=== PATIENT | male | born 1985 | race Caucasian/White ===

== ENCOUNTER → 2020-04-17 | Outpatient (CLI) | payer OTHER ==
--- NOTE | 2020-04-17 13:09 | CONS ---
CONSULTATION DATE OF SERVICE: 04/17/2020 This 34-year-old gentleman has been evaluated in the sleep center for possible obstructive sleep apnea-hypopnea syndrome. HISTORY OF PRESENT ILLNESS/SLEEP-WAKE EVALUATION: Patient usual sleep schedule from 9 p.m. to 6 a.m. on weekdays and from midnight until 7 a.m. on weekends. Sometimes he has problems with falling asleep, although no TV in bedroom. He sleeps on the back and side position with snoring and witnessed episodes of stopped breathing during sleep by his father. The patient wakes up from sleep 2 times with nocturia and dry mouth. In the morning, patient wakes up tired, has episodes of depression and anxiety. [place] Sleepiness Scale is 3. PAST MEDICAL HISTORY: Positive for anxiety, depression, hepatitis C, opioid usage, history of nasal fracture. PAST SURGICAL HISTORY: None. MEDICATIONS: Suboxone 18 mg twice a day, Celexa 30 mg once a day, Remeron 30 mg once a day, once a day. SOCIAL HISTORY: Positive for smoking 1 pack a day. Alcohol consumption none. FAMILY HISTORY: Heart problems, hypertension, hyperlipidemia, arthritis, cancer, diabetes, acid reflux, sleep apnea. PHYSICAL EXAMINATION: GENERAL: gentleman without distress. VITAL SIGNS: BP 125/84, HR 86, RR 15, height 6 feet 3 inches, weight 279.4 pounds, body mass index 34.8, temperature 97.6, oxygen saturation room air 95%. HEENT: PERRLA, EOMI. Oropharynx extremely low position of soft palate, Mallampati 4. Wide neck is 17 inches in circumference. NECK: Supple, no JVD. Thyroid is not palpable. LUNGS: Clear to percussion and to auscultation. Good air exchange. No wheezing or rhonchi. HEART: S1, S2 regular. No murmurs, gallops, or rubs. ABDOMEN: Soft and nontender. Bowel sounds are present. No organomegaly appreciated. EXTREMITIES: No clubbing or cyanosis. GAS WELDER APPRENTICE: Awake, alert, and oriented X3. Cranial nerves 2 to 7 intact. There is no fasciculation or atrophy. noted. No focal deficits observed. IMPRESSION: 1. Snoring, witnessed episodes of stopped breathing during the sleep, extremely low position of soft palate, Mallampati 4, wide neck 17 inches in circumference, tiredness after awakenings in the morning, obstructive sleep apnea-hypopnea syndrome. 2. History of opioid usage on treatment of Suboxone, increased risk for central apneas. 3. History of depression. 4. History of anxiety. 5. Status post nasal fracture. Some restriction of nasal breathing, possible nasal septum deviation. 6. History of hepatitis C. PLAN: 1. Polysomnography for evaluation of patient's breathing during sleep. 2. CPAP/BiPAP titration if sleep study confirms obstructive sleep apnea-hypopnea syndrome. 3. Preferable position during sleep on the side. 4. No driving if patient feels any sleepiness. 5. I will see patient for follow up visit to explain results of testing and following plan. Thank you very much for referring this patient for consultation. Sincerely, Finn Batres MD, PhD, FAASM Diplomat of [employer] [place] [place] As[employer]er [facility] [place] MMODL / IJN: [id number] /
== END | disposition home or self-care (01) ==
LOC: SLEEP 11:10
PROVIDERS: ATTEND Internal Medicine
DX: G47.33 Obstructive sleep apnea (adult) (pediatric) (principal); Z86.59 Personal history of other mental and behavioral disorders; Z87.81 Personal history of (healed) traumatic fracture; Z86.19 Personal history of other infectious and parasitic diseases
CPT/HCPCS: 99211

== ENCOUNTER → 2021-06-16 | Outpatient (CLI) | payer BC, OTHER ==
[2021-06-17 00:19] LABS: Basophils # (A) 0.02 X 10*3/uL (0.00-0.10); Basophils % (A) 0.3 %; Eosinophils % (A) 1.6 %; HCT 46.2 % (39.6-50.0); HGB 15.1 g/dL (13.0-17.0); Immature Grans, Automated 0.3 %; Lymphocytes # (A) 3.06 X 10*3/uL (0.90-5.00); Lymphocytes % (A) 47.5 %; MCH 31.3 pg (27.0-32.0); MCHC 32.7 g/dL (32.0-37.0); MCV 95.7 fL (80.0-97.0); Mean Platelet Volume 9.4 fL (9.5-12.2); Monocytes # (A) 0.36 X 10*3/uL (0.20-1.00); Monocytes % (A) 5.6 %; NRBC Per 100 WBC 0 /100 WBCS (0.0-0.0); Neutrophils # (A) 2.88 X 10*3/uL (1.80-7.70); Neutrophils % (A) 44.7 %; Platelet Count 193 X 10*3/uL (140-440); RBC 4.83 X 10*6/uL (4.40-5.60); RDW 12.5 % (11.5-14.5); WBC 6.44 X 10*3/uL (4.50-10.00)
[2021-06-17 02:09] LABS: Erythrocyte Sedimentation Rate 10 mm/Hr (0-15)
[2021-06-17 02:44] LABS: ALT 56 U/L (10-49); AST 47 U/L (14-35); BUN/Creat Ratio 17.29 Ratio (12.00-20.00); Blood Urea Nitrogen 14.7 mg/dL (9.0-27.0); Calcium 9.7 mg/dL (8.7-10.3); Carbon Dioxide 23.7 mmol/L (20.0-27.5); Chloride 101 mmol/L (96-109); Creatine Kinase 405 U/L (35-257); Glucose 92 mg/dL (70-110); Non-African American GFR(CKD) 111.3 (60.0-200.0); Potassium 4.1 mmol/L (3.5-5.5); Sodium 139 mmol/L (135-145)
[2021-06-17 06:27] LABS: C Reactive Protein <0.30 mg/dL (0.00-0.80); Rheumatoid Factor, Qnt <10 IU/mL (0-15)
[2021-06-17 09:25] LABS: Angiotensin-1 Converting Enz. 95 U/L (8-52)
[2021-06-17 10:56] LABS: HLA B27 NEGATIVE
[2021-06-17 12:51] LABS: Cyclic Citrull Pep IgG Unit <0.5 U/mL; Cyclic Citrullinated Pep IgG NEGATIVE (NEGATIVE)
== END | disposition home or self-care (01) ==
LOC: LABWHC1 10:17
PROVIDERS: ATTEND Orthopaedic Surgery
DX: M79.642 Pain in left hand (principal); M79.645 Pain in left finger(s)
CPT/HCPCS: 36415; 80048; 82164; 82306; 82550; 83520; 84439; 84443; 84450; 84460; 84550; 85025; 85652; 86038; 86140; 86200; 86431; 86812

== ENCOUNTER → 2022-07-10 | Outpatient (CLI) | payer BC ==
[2022-07-10 23:47] LABS: HCT 43.5 % (39.6-50.0); HGB 14.7 g/dL (13.0-17.0); MCH 32.9 pg (27.0-32.0); MCHC 33.8 g/dL (32.0-37.0); MCV 97.3 fL (80.0-97.0); Mean Platelet Volume 8.5 fL (9.5-12.2); NRBC Per 100 WBC 0 /100 WBCS (0.0-0.0); Platelet Count 182 X 10*3/uL (140-440); RBC 4.47 X 10*6/uL (4.40-5.60); RDW 12.3 % (11.5-14.5); WBC 5.19 X 10*3/uL (4.50-10.00)
[2022-07-11 08:09] LABS: African American GFR (CKD) 131.3 (60.0-200.0); Anion Gap 12.4 mmol/L (10.00-18.00); Blood Urea Nitrogen 17.7 mg/dL (9.0-27.0); Carbon Dioxide 25.6 mmol/L (20.0-27.5); Non-African American GFR(CKD) 113.3 (60.0-200.0); Potassium 4.1 mmol/L (3.5-5.5)
== END | disposition home or self-care (01) ==
LOC: LABPAT 11:31
PROVIDERS: ATTEND Internal Medicine Interventional Cardiology
DX: Z01.812 Encounter for preprocedural laboratory examination (principal); R07.9 Chest pain, unspecified
CPT/HCPCS: 80051; 82565; 84520; 85027

== ENCOUNTER 2022-07-19 09:59 | Day surgery (SDC) | payer BC ==
[~2022-07-19 09:59] MED LIST: ALPRAZolam 0.25 MG TAB PO PRN; ALPRAZolam 0.5 MG TAB PO PRN; ASPIRIN 325 MG TAB PO ONE; NITROGLYCERIN SL TABS 0.4 MG TAB SUBLINGUAL PRN; SODIUM CHLORIDE 0.9% 1,000 ML in EMPTY BAG 1 BAG IV SCH
[2022-07-19 10:34] VITALS: RESP 18; TEMP 97.3
[2022-07-19] MEDS ORDERED: HEPARIN SODIUM 1,000 UN/ML (10ML VL) ONE (12:19)
[2022-07-19] MEDS ORDERED: MIDAZOLAM 2 MG/2 ML VIAL IVP ONE (12:39)
[2022-07-19] MEDS ORDERED: LIDOCAINE 1% INJ 10MG/ML (5 ML VIAL-PF) SQ ONE (12:40)
[2022-07-19] MEDS ORDERED: VERAPAMIL SYRINGE (5 MG/10 ML) INTRAARTER ONE (12:42)
[2022-07-19] MEDS ORDERED: HEPARIN SODIUM 1,000 UN/ML (10ML VL) IVP ONE (12:45)
[2022-07-19] MEDS ORDERED: IOPAMIDOL-370 100ML BTL INJ ONE (12:48)
[2022-07-19] MEDS ORDERED: RX INFO: IV CONTRAST WAS GIVEN 1 EACH MISC MISCELLANE PRN (12:55)
--- NOTE | 2022-07-19 12:58 | P.PCN ---
Date of Procedure: 07/19/22 Operative Findings: CARDIAC CATHETERIZATION PERFORMING PHYSICIAN: Carlos Adame MD, RPVI PROCEDURE PERFORMED: 1. Selective right and left coronary angiogram 2. Left heart catheterization INDICATION: Chest discomfort and this 36-year-old gentleman who underwent a stress test and that came in to be abnormal COMPLICATION: None APPROACH: Right radial artery LEVEL OF SEDATION: Moderate with a sedation length of 11 minutes PROCEDURE DESCRIPTION: After obtaining an informed consent, the patient was brought to cardiac chemistry laboratory technician. Local anesthesia was performed using lidocaine subcutaneously. The right radial artery was cannulated using Seldinger technique, the guidewire passed easily, following that we advanced a 5-Mexican sheath dilator assembly, the wire and dilator were removed and sheath was flushed. Following that, 2 mg of verapamil along with 5000 unit heparin were given. Selective right and left coronary angiogram using a 6-Mexican JR4 and JL 3.5 catheters. Following that we did left heart catheterization using 6-Mexican pigtail catheter. The procedure was completed there was no complication. SELECTIVE CORONARY ANGIOGRAM: The right coronary artery: Large-caliber vessel and a dominant vessel. The RCA has mild disease only. Distally bifurcates into PDA and PLV branches both appeared to be angiographically normal Left main: Is angiographically normal. Bifurcates into an LCx and LAD The left circumflex: Large caliber vessel nondominant vessel. The LCx is angiographically normal. The left anterior descending artery: Large-caliber vessel. The LAD is angiographically normal. It gives rise into a diagonal branch which seems to be angiographically normal. HEMODYNAMICS: The LVEDP was about 10 mmHg was no significant gradient across aortic valve CONCLUSION: 1. Normal coronary angiogram 2.: Normal left-sided filling pressure POSTPROCEDURE MANAGEMENT: Medical treatment and follow-up with the patient
[2022-07-19] MEDS ORDERED: SODIUM CHLORIDE 0.9% 1,000 ML IV SCH (13:00)
[2022-07-19 15:55] VITALS: BP 136/72; PULSE 82
== END 2022-07-19 15:55 | disposition home or self-care (01) ==
LOC: CATHCVL 09:59
PROVIDERS: ATTEND Internal Medicine Interventional Cardiology
DX: R07.89 Other chest pain (principal)
CPT/HCPCS: 93458; C1769; C1894; J2250; J2001; J1644; Q9967

== ENCOUNTER 2023-09-25 21:06 | Inpatient (IN) | payer BC, OTHER ==
[2023-09-25] MEDS ORDERED: VANCOMYCIN IV PER PHARMACY 1 EACH MISC MISCELLANE PRN (22:02)
[2023-09-25 22:55] LABS: Basophils % (A) 0 %; Eosinophils # (A) 0.2 k/uL (0-0.7); Eosinophils % (A) 1 %; HCT 34.2 % (39.0-53.0); HGB 10.9 gm/dL (13.0-17.5); Lymphocytes # (A) 1.5 k/uL (1.0-4.8); Lymphocytes % (A) 11 %; MCH 29.8 pg (25.0-35.0); MCHC 31.9 g/dL (31.0-37.0); MCV 93.4 fL (80.0-100.0); Mean Platelet Volume 7.1; Monocytes # (A) 0.6 k/uL (0-1.0); Monocytes % (A) 4 %; Neutrophils # (A) 10.9 k/uL (1.3-7.7); Neutrophils % (A) 82 %; Platelet Count 395 k/uL (150-450); RBC 3.66 m/uL (4.30-5.90); WBC 13.4 k/uL (3.8-10.6)
[2023-09-25] MEDS: PIPERACILLIN-TAZOBACTAM 3.375 GM in SODIUM CHLORIDE 0.9% 100 ML IVPB STA (23:43)
[2023-09-25 23:44] LABS: ALT 16 U/L (4-49); AST 20 U/L (17-59); African American GFR (CKD) >90 (>60 ml/min/1.73 sqM); Albumin 3.3 g/dL (3.5-5.0); Alkaline Phosphatase 96 U/L (38-126); Anion Gap 7 mmol/L; Blood Urea Nitrogen 14 mg/dL (9-20); Calcium 8.7 mg/dL (8.4-10.2); Carbon Dioxide 29 mmol/L (22-30); Chloride 97 mmol/L (98-107); Glucose 112 mg/dL (74-99); Non-African American GFR(CKD) >90 (>60 ml/min/1.73 sqM); Potassium 3.8 mmol/L (3.5-5.1); Sodium 133 mmol/L (137-145); Total Bilirubin 0.4 mg/dL (0.2-1.3); Total Protein 6.4 g/dL (6.3-8.2)
[2023-09-25] MEDS: VANCOMYCIN 1,750 MG in SODIUM CHLORIDE 0.9% 500 ML 500 ML IVPB ONE (23:46)
--- NOTE | 2023-09-26 00:43 | ED ---
General Adult HPI - General Chief complaint: Skin/Abscess/Foreign Body Stated complaint: Leg/Hand Infection Time Seen by Provider: 09/25/23 21:54 Source: patient Mode of arrival: ambulatory Limitations: no limitations - History of Present Illness Initial comments: 37-year-old male presenting with chief complaint of multiple abscesses. Patient is in IV drug user, currently uses heroin last used earlier today. Patient has a significant abscess to the dorsal aspect of the right hand as well as to the bilateral thigh and calf. These abscesses are actively draining. He presents febrile. He denies any nausea or vomiting. No prior antibiotics. - Related Data Home Medications Medication Instructions Recorded Confirmed Buprenorphine/Naloxone 8Mg/2Mg 1.5 film SL HS 07/16/22 09/26/23 [Suboxone 8-2Mg Film] Losartan/Hydrochlorothiazide 1 tab PO HS 07/16/22 09/26/23 [Losartan-Hctz 100-25 mg Tab] Citalopram Hydrobromide [CeleXA] 40 mg PO HS 09/26/23 09/26/23 Dextroamphetamine/Amphetamine 20 mg PO TID 09/26/23 09/26/23 [Adderall] Metoprolol Succinate (ER) [Toprol 50 mg PO HS 09/26/23 09/26/23 Xl] Mirtazapine [Remeron] 15 mg PO HS 09/26/23 09/26/23 Allergies Allergy/AdvReac Type Severity Reaction Status Date / Time No Known Allergies Allergy Verified 09/26/23 07:48 Review of Systems ROS Statement: Those systems with pertinent positive or pertinent negative responses have been documented in the HPI. ROS Other: All systems not noted in ROS Statement are negative. Past Medical History Past Medical History: Hypertension Additional Past Medical History / Comment(s): edema and redness to hands last year. seen by Dr Adame. chemical stress test. aching in knees. has not been tested for sleep apnea yet. History of Any Multi-Drug Resistant Organisms: None Reported Past Surgical History: Orthopedic Surgery Additional Past Surgical History / Comment(s): meniscus repair rt knee, orbital fx repair. Past Anesthesia/Blood Transfusion Reactions: No Reported Reaction Past Psychological History: Anxiety, Depression Smoking Status: Current every day smoker Past Alcohol Use History: None Reported Past Drug Use History: Heroin, IV Drug Use - Past Family History Father Family Medical History: Hypertension General Exam Limitations: no limitations General appearance: alert, in no apparent distress Head exam: Present: atraumatic, normocephalic Eye exam: Present: normal appearance, EOMI Neck exam: Present: normal inspection. Absent: meningismus Respiratory exam: Absent: respiratory distress Neurological exam: Present: alert, oriented X3 Psychiatric exam: Present: normal affect, normal mood Expanded Type of lesion: Present: abscess (Right hand, bilateral legs) Course Vital Signs 09/25/23 09/25/23 09/25/23 21:14 21:53 23:17 Temperature 98.2 F Pulse Rate 102 H 94 85 Respiratory 20 20 20 Rate Blood Pressure 133/80 133/83 117/86 O2 Sat by Pulse 95 96 95 Oximetry 09/26/23 09/26/23 09/26/23 00:00 01:00 02:00 Temperature Pulse Rate 80 81 77 Respiratory 19 16 15 Rate Blood Pressure 129/80 108/65 119/67 O2 Sat by Pulse 95 97 97 Oximetry 09/26/23 09/26/23 09/26/23 03:00 04:00 05:00 Temperature Pulse Rate 79 74 72 Respiratory 18 16 20 Rate Blood Pressure 111/63 102/58 104/61 O2 Sat by Pulse 98 96 98 Oximetry 09/26/23 09/26/23 09/26/23 06:32 08:31 11:16 Temperature 97.7 F Pulse Rate 77 64 82 Respiratory 15 22 18 Rate Blood Pressure 119/79 121/79 129/83 O2 Sat by Pulse 98 92 L 97 Oximetry 09/26/23 09/26/23 09/26/23 12:01 16:14 21:27 Temperature Pulse Rate 78 85 77 Respiratory 18 16 16 Rate Blood Pressure 128/83 127/88 116/75 O2 Sat by Pulse 95 95 97 Oximetry 09/27/23 09/27/23 02:30 05:47 Temperature 98.4 F Pulse Rate 72 79 Respiratory 16 16 Rate Blood Pressure 118/81 124/66 O2 Sat by Pulse 95 98 Oximetry Medical Decision Making - Medical Decision Making Was pt. sent in by a medical professional or institution (, PA, ARCHITECTURAL MANAGER, urgent care, hospital, or half-way...) When possible be specific @ -No Did you speak to anyone other than the patient for history (EMS, parent, family, police, friend...)? What history was obtained from this source @ -No Did you review nursing and triage notes (agree or disagree)? Why? @ -I reviewed and agree with nursing and triage notes Were old charts reviewed (outside hosp., previous admission, EMS record, old EKG, old radiological studies, urgent care reports/EKG's, half-way records)? Report findings @ -No old charts were reviewed Differential Diagnosis (chest pain, altered mental status, abdominal pain women, abdominal pain men, vaginal bleeding, weakness, fever, dyspnea, syncope, headache, dizziness, GI bleed, back pain, seizure, CVA, palpatations, mental health, musculoskeletal)? @ -Differential Musculoskeletal Muscular strain, contusion, ligament sprain, fracture, arthritis, septic arthritis, bursitis, cellulitis, muscle spasm, nerve compression, DVT, arterial occlusion, herpes zoster, electrolyte abnormality, tumor.... This is not meant to be in all inclusive list EKG interpreted by me (3pts min.). @ -As above X-rays interpreted by me (1pt min.). @ -None done CT interpreted by me (1pt min.). @ -None done U/S interpreted by me (1pt. min.). @ -None done What testing was considered but not performed or refused? (CT, X-rays, U/S, labs)? Why? @ -None What meds were considered but not given or refused? Why? @ -None Did you discuss the management of the patient with other professionals (professionals i.e. , PA, ARCHITECTURAL MANAGER, lab, RT, psych nurse, case management social worker, health advocate, teacher, bsa/aml compliance officer, casey saw operator)? Give summary @ -I spoke with Dr. Gant who accepted admission Was smoking cessation discussed for >3mins.? @ -No Was critical care preformed (if so, how long)? @ -No Were there social determinants of health that impacted care today? How? (Homelessness, low income, unemployed, alcoholism, drug addiction, transportation, low edu. Level, literacy, decrease access to med. care, long-term, rehab)? @ -IV drug use Was there de-escalation of care discussed even if they declined (Discuss DNR or withdrawal of care, Hospice)? DNR status @ -No What co-morbidities impacted this encounter? (DM, HTN, Smoking, COPD, CAD, Cancer, CVA, ARF, Chemo, Hep., AIDS, mental health diagnosis, sleep apnea, morbid obesity)? @ -None Was patient admitted / discharged? Hospital course, mention meds given and route, prescriptions, significant lab abnormalities, going to OR and other pertinent info. @ -37-year-old male known history of IVDA presenting with multiple abscesses. Patient is febrile and tachycardic upon arrival. WBC 13.4. He is started on Zo syn and vancomycin. He will be admitted he is agreeable with this plan. I discussed this case with my attending Dr. Burnett Undiagnosed new problem with uncertain prognosis? @ -No Drug Therapy requiring intensive monitoring for toxicity (Heparin, Nitro, Insulin, Cardizem)? @ -No Were any procedures done? @ -No Diagnosis/symptom? @ -Abscesses Acute, or Chronic, or Acute on Chronic? @ -Acute Uncomplicated (without systemic symptoms) or Complicated (systemic symptoms)? @ -Complicated Side effects of treatment? @ -No Exacerbation, Progression, or Severe Exacerbation? @ -No Poses a threat to life or bodily function? How? (Chest pain, [place], HI, pneumonia, PE, COPD, DKA, ARF, appy, cholecystitis, CVA, Diverticulitis, Homicidal, Suicidal, threat to staff... and all critical care pts) @ -Yes - Lab Data Result diagrams: 09/27/23 09:30 09/27/23 09:30 Lab Results 09/25/23 09/25/23 09/25/23 Range/Units 22:25 22:25 22:25 WBC 13.4 H (3.8-10.6) k/uL RBC 3.66 L (4.30-5.90) m/uL Hgb 10.9 L (13.0-17.5) gm/dL Hct 34.2 L (39.0-53.0) % MCV 93.4 (80.0-100.0) fL MCH 29.8 (25.0-35.0) pg MCHC 31.9 (31.0-37.0) g/dL RDW 13.0 (11.5-15.5) % Plt Count 395 (150-450) k/uL MPV 7.1 Neutrophils % 82 % Lymphocytes % 11 % Monocytes % 4 % Eosinophils % 1 % Basophils % 0 % Neutrophils # 10.9 H (1.3-7.7) k/uL Lymphocytes # 1.5 (1.0-4.8) k/uL Monocytes # 0.6 (0-1.0) k/uL Eosinophils # 0.2 (0-0.7) k/uL Basophils # 0.0 (0-0.2) k/uL Sodium 133 L (137-145) mmol/L Potassium 3.8 (3.5-5.1) mmol/L Chloride 97 L (98-107) mmol/L Carbon Dioxide 29 (22-30) mmol/L Anion Gap 7 mmol/L BUN 14 (9-20) mg/dL Creatinine 0.75 (0.66-1.25) mg/dL Est GFR (CKD-EPI)AfAm >90 (>60 ml/min/1.73 sqM) Est GFR (CKD-EPI)NonAf >90 (>60 ml/min/1.73 sqM) Glucose 112 H (74-99) mg/dL Plasma Lactic Acid Kam 1.0 (0.7-2.0) mmol/L Calcium 8.7 (8.4-10.2) mg/dL Total Bilirubin 0.4 (0.2-1.3) mg/dL AST 20 (17-59) U/L ALT 16 (4-49) U/L Alkaline Phosphatase 96 (38-126) U/L Total Protein 6.4 (6.3-8.2) g/dL Albumin 3.3 L (3.5-5.0) g/dL Disposition Clinical Impression: Abscess of multiple sites Disposition: ADMITTED IP TO THIS HOSP Condition: Poor Time of Disposition: 00:43
[2023-09-26] MEDS ORDERED: NALOXONE 0.4 MG/ML 1 ML VIAL IV PRN (00:54)
[2023-09-26] MEDS: SODIUM CHLORIDE 0.9% 1,000 ML IV SCH (01:14)
[2023-09-26] MEDS: MORPHINE SULFATE 4 MG/ML SYRINGE IVP PRN (05:11)
--- NOTE | 2023-09-26 06:38 | P.HPIM ---
History of Present Illness H&P Date: 09/26/23 Chief Complaint: Hand abscess 37-year-old male with IV drug abuse Patient coming in for evaluation of 1 week history of multiple abscesses around his body due to missing the veins while trying to inject heroin. He admits to fevers and chills he admits to taking some of the street antibiotics with no improvement. He decided to come in due to worsening swelling redness pain. He denies any history of infective endocarditis. He reports some limited range of motion of his right hand due to swelling. Patient denies any chest pain trouble breathing coughing or hemoptysis review of systems Pertinent positives as noted in HPI. All other systems were reviewed and are ne gative on exam Constitutional: No acute distress, conversant, pleasant Eyes: Anicteric sclerae, moist conjunctiva, Pupils equal round reactive to light ENMT: NC/AT Oropharynx clear, no erythema, or exudates Neck: Supple, no masses, or JVD No carotid bruits No thyromegaly Lungs: Clear to auscultation Clear to percussion Normal respiratory effort, no accessory muscle use Cardiovascular: Heart regular in rate and rhythm, No murmurs, gallops, or rubs No peripheral edema Abdominal: Soft Nontender, no guarding, rebound or rigidity Abdomen moving with respiration Normoactive bowel sounds Skin: Multiple abscesses around his body mainly over the right hand over the dorsum of his right hand over his right leg and his left thigh. He has n oticeable swelling and erythema over his right hand and right leg warm to the touch tender to palpation. He also has old lesions eschar over bilateral legs multiple small 2 x 2 centimeter lesions Extremities: No digital cyanosis Pedal pulses intact and symmetrical Radial pulses intact and symmetrical No calf tenderness Psychiatric: Alert and oriented to person, place and time Appropriate affect fair judgement Neuro Muscles Strength 5/5 in all 4 extremities Sensation to light touch grossly present throughout Cranial nerves II-XII grossly intact Past Medical History Past Medical History: Hypertension Additional Past Medical History / Comment(s): edema and redness to hands last year. seen by Dr Adame. chemical stress test. aching in knees. has not been tested for sleep apnea yet. History of Any Multi-Drug Resistant Organisms: None Reported Past Surgical History: Orthopedic Surgery Additional Past Surgical History / Comment(s): meniscus repair rt knee, orbital fx repair. Past Anesthesia/Blood Transfusion Reactions: No Reported Reaction Past Psychological History: Anxiety, Depression Smoking Status: Current every day smoker Past Alcohol Use History: None Reported Past Drug Use History: Heroin, IV Drug Use - Past Family History Father Family Medical History: Hypertension Medications and Allergies Home Medications Medication Instructions Recorded Confirmed Type Buprenorphine/Naloxone 8Mg/2Mg 1 film SL DAILY 07/16/22 07/19/22 History [Suboxone 8-2Mg Film] Citalopram Hydrobromide 20 mg PO DAILY 07/16/22 07/19/22 History [Citalopram HBr] Losartan/Hydrochlorothiazide 1 tab PO DAILY 07/16/22 07/19/22 History [Losartan-Hctz 100-25 mg Tab] Mirtazapine 30 mg PO DAILY 07/16/22 07/19/22 History amLODIPine BESYLATE [Amlodipine 10 mg PO DAILY 07/16/22 07/19/22 History Besylate] Aspirin 81 mg PO DAILY PRN 07/19/22 07/19/22 History Allergies Allergy/AdvReac Type Severity Reaction Status Date / Time No Known Allergies Allergy Verified 07/19/22 10:09 Physical Exam Vitals: Vital Signs Temp Pulse Resp BP Pulse Ox 09/26/23 05:00 72 20 104/61 98 09/26/23 04:00 74 16 102/58 96 09/26/23 03:00 79 18 111/63 98 09/26/23 02:00 77 15 119/67 97 09/26/23 01:00 81 16 108/65 97 09/26/23 00:00 80 19 129/80 95 09/25/23 23:17 85 20 117/86 95 09/25/23 21:53 94 20 133/83 96 09/25/23 21:14 98.2 F 102 H 20 133/80 95 Intake and Output 09/25/23 09/25/23 09/26/23 14:59 22:59 06:59 Other: Weight 100.244 kg Results CBC & Chem 7: 09/25/23 22:25 09/25/23 22:25 Labs: Abnormal Lab Results - Last 24 Hours (Table) 09/25/23 09/25/23 Range/Units 22:25 22:25 WBC 13.4 H (3.8-10.6) k/uL RBC 3.66 L (4.30-5.90) m/uL Hgb 10.9 L (13.0-17.5) gm/dL Hct 34.2 L (39.0-53.0) % Neutrophils # 10.9 H (1.3-7.7) k/uL Sodium 133 L (137-145) mmol/L Chloride 97 L (98-107) mmol/L Glucose 112 H (74-99) mg/dL Albumin 3.3 L (3.5-5.0) g/dL Assessment and Plan Assessment: 37-year-old male IV drug abuse coming in with multiple abscesses due to missing the veins while attempting to inject heroin I discussed the case with ED doctor and accepted the admission for sepsis secondary to multiple abscesses with anticipated length of stay more than 2 midnights Sepsis (tachycardia and leukocytosis) secondary to cellulitis with abscess of the right hand and right leg Rule out infective endocarditis Follow-up blood cultures Check echocardiogram Tylenol 650 mg p.o. every 4 hours as needed for fever Dilaudid 0.5 mg IV push every 3 hours for pain 1L bolus normal saline , then IV fluid hydration normal saline 130 cc/h White count 13.4 leukocytosis Lactic acid 1.0 unremarkable Vancomycin dosing by pharmacy ID consultation Acute anemia Hemoglobin 10.9 Patient denies any GI bleeding Hemoglobin was within normal limits last time checked in June 2022 Continue to monitor Hypertension controlled Continue with amlodipine losartan and hydrochlorothiazide home medications Potassium 3.8 BUN 14 creatinine 0.75 unremarkable Mild hyponatremia Sodium 133 Continue with IV fluid hydration with normal saline and monitor sodium level Full code DVT prophylaxis heparin subcu 3 times daily Protonix for GI prophylaxis 40 mg p.o. daily
[2023-09-26] MEDS: PANTOPRAZOLE 40 MG TABLET PO SCH (06:46)
[2023-09-26] MEDS: HYDROmorphone 0.5 MG/0.5 ML SYRINGE IVP PRN (06:47)
[2023-09-26] MEDS: VANCOMYCIN 1,500 MG in SODIUM CHLORIDE 0.9% 500 ML 500 ML IVPB SCH (07:52)
[2023-09-26] MEDS: SODIUM CHLORIDE 0.9% 1,000 ML IV ONE (07:52)
[2023-09-26] MEDS: HEPARIN SODIUM,PORCINE 5,000 UNIT/ML 1 ML VIAL SQ SCH (08:33)
[2023-09-26] MEDS ORDERED: amLODIPine 10 MG TAB PO SCH (09:00)
[2023-09-26] MEDS: LOSARTAN-HCTZ 50-12.5 MG 1 EACH TAB PO SCH (09:08)
--- NOTE | 2023-09-26 11:34 | P.PN ---
Subjective Progress Note Date: 09/26/23 Hospital course: Patient is a 37-year-old male with a past medical history of IVDA with heroin. He presented to the emergency department secondary to multiple abscess sites concerning for infection with reports of fever and chills. Patient reports these abscesses are due to injecting heroin and missing the vein. Upon arrival to our facility, patient underwent evaluation in the emergency department. Vital signs upon arrival show blood pressure 133/80, heart rate 102, respiratory rate 20, temp 98.2 F, and SpO2 of 95% on room air. Labs completed and reviewed. CBC showing leukocytosis with WBC count of 13.4 and normocytic anemia with hemoglobin of 10.9. BMP showing hyponatremia with sodium of 133, hypochloremia with chloride of 97, and blood glucose of 112. Lactic acid was 1.0. Liver profile unremarkable with the exception of hypoalbuminemia with albumin of 3.3. Blood Cultures were obtained and patient was started on IV a ntibiotics with vancomycin. Patient admitted under our services with consultation to infectious disease and general surgery for I&D. Physical exam: Vital signs reviewed and stable. General: Nontoxic, no distress and appears stated age. Derm: Skin warm and dry, normal coloration for ethnicity. Patient has multiple abscesses to upper and lower extremities with large abscess concerning for infection to the dorsal surface of right hand and left upper thigh. Right hand and left thigh with swelling, increased warmth, Head: Atraumatic, normocephalic and symmetric. Eyes: EOMs intact, no lid lag, and anicteric sclera Mouth: no lip lesions, mucus membranes moist Cardiovascular: regular rate and rhythm with normal S1S2, no murmur, positive posterior tibial pulses bilaterally, and cap refill < 2 seconds. Lungs: Respirations even, regular, and unlabored on room air. Lungs CTA bilaterally, no rhonchi, no rales, no wheezing, and no accessory muscle usage. Abdominal: soft, nontender to palpation, no guarding, no appreciable organomegaly Ext: No gross muscle atrophy, no edema, no contractures. Movement and sensation intact, patient with limited ROS of right hand, unable to make a tight fist secondary to swelling and pain. Neuro: Speech clear, face symmetrical and CN II-XII grossly intact with no noted focal neuro deficits Psych: Alert and oriented to person, place, time, and situation. Appropriate and pleasant affect. Assessment and Plan of Care: Sepsis (tachycardia, leukocytosis, and reports of fever) secondary to abscess with surrounding cellulitis of right hand and left leg. IVDA with heroin Anxiety with depression -Continue IV antibiotics with vancomycin 1500 mg every 8 hours. Will monitor renal function and vancomycin trough closely for any signs/symptoms of vancomycin induced renal toxicity. -Rule out Infective endocarditis by obtaining an echocardiogram. -Infectious disease consulted, appreciate recommendations -General surgery consulted for evaluation for I&D, appreciate recommendations. -Symptomatic care and pain management with Dilaudid and Toradol as directed for pain management. -Follow-up on blood culture and wound culture results. -Patient to continue daily medication regimen with Suboxone 8 mg / 2 mg nightly, Celexa 40 mg nightly, and Remeron 15 mg nightly. -Order placed for x-ray right hand -Order placed for ultrasound of abscess left thigh. Hypertension -Continue daily medication regimen with losartan/hydrochlorothiazide 50/12.5 mg tablets taking 2 tablets daily and Metroprolol 50 mg nightly. CODE STATUS: Full code DVT prophylaxis: Heparin Anticipated discharge date: Pending clinical course Anticipated discharge place: Home Patient was seen independently by Nurse Pracitioner. This document was prepared using dineout dictation software. Please allow for errors in adding machine operator, while rare they do occur. . . I reviewed the documentation as provided by the IRMA above, who is the original author of this note. I agree with the documented assessment and plan, with the following changes: none Objective - Vital Signs Vital signs: Vital Signs Temp 97.7 F 09/26/23 06:32 Pulse 77 09/26/23 06:32 Resp 15 09/26/23 06:32 BP 119/79 09/26/23 06:32 Pulse Ox 98 09/26/23 06:32 FiO2 Intake & Output 09/25/23 09/26/23 09/26/23 18:59 06:59 18:59 Weight 100.244 kg - Labs CBC & Chem 7: 09/25/23 22:25 09/25/23 22:25 Labs: Abnormal Lab Results - Last 24 Hours (Table) 09/25/23 09/25/23 Range/Units 22:25 22:25 WBC 13.4 H (3.8-10.6) k/uL RBC 3.66 L (4.30-5.90) m/uL Hgb 10.9 L (13.0-17.5) gm/dL Hct 34.2 L (39.0-53.0) % Neutrophils # 10.9 H (1.3-7.7) k/uL Sodium 133 L (137-145) mmol/L Chloride 97 L (98-107) mmol/L Glucose 112 H (74-99) mg/dL Albumin 3.3 L (3.5-5.0) g/dL
[2023-09-26] MEDS: KETOROLAC 15 MG/ML 1 ML VIAL IVP PRN (11:57)
--- NOTE | 2023-09-26 13:00 | XR ---
EXAMINATION TYPE: XR hand complete RT DATE OF EXAM: 09/26/2023 COMPARISON: None HISTORY: Swelling, pain TECHNIQUE: 3 view right hand FINDINGS: No acute fractures or dislocations evident. No suspicious cortical erosions suggest underly ing osteomyelitis. No radiopaque foreign bodies evident. Joint spaces appear preserved. There is diffuse soft tissue swelling over the dorsum of the hand. IMPRESSION: 1. Diffuse soft tissue swelling greater along the dorsum of the hand. 2. No acute osseous abnormality radiographically apparent.
--- NOTE | 2023-09-26 13:40 | US ---
EXAMINATION TYPE: US extremity nonvasc mass LT DATE OF EXAM: 09/26/2023 COMPARISON: NONE CLINICAL INDICATION: Male, 37 years old with history of LLE left thigh abscess; Left thigh abscess. A ctively bleeding TECHNIQUE: Area of left lateral thigh abscess scanned FINDINGS: Heterogeneous complex area seen measuring 3.2 x 3.4 x 3.1cm with hypervascularity within a ellie of concern. Findings could be related to a hematoma.. Vascularity within this area appears to be related to solid structures adjacent to the hematoma. Consider CT with contrast or MRI for additional workup. No walled abscess is identified. IMPRESSION: Hematoma may be infiltrating through the soft tissues of the thigh with adjacent vascula rity. Consider additional workup with contrast CT or MRI.
[2023-09-26] MEDS: HYDROmorphone 1 MG/ML 1 ML SYRINGE IVP PRN (15:54)
--- NOTE | 2023-09-26 16:10 | P.GSCN ---
History of Present Illness Consult date: 09/26/23 Reason for Consult: Multiple abscesses related to heroin IV drug abuse History of present illness: This is a 37-year-old male with chronic history of IV drug abuse. Patient has multiple areas of subcutaneous skin abscesses related to IV drug injection sites. Patient also has significant inflammatory changes of his right hand. Past Medical History Past Medical History: Hypertension Additional Past Medical History / Comment(s): edema and redness to hands last year. seen by Dr Adame. chemical stress test. aching in knees. has not been tested for sleep apnea yet. History of Any Multi-Drug Resistant Organisms: None Reported Past Surgical History: Orthopedic Surgery Additional Past Surgical History / Comment(s): meniscus repair rt knee, orbital fx repair. Past Anesthesia/Blood Transfusion Reactions: No Reported Reaction Past Psychological History: Anxiety, Depression Smoking Status: Current every day smoker Past Alcohol Use History: None Reported Past Drug Use History: Heroin, IV Drug Use - Past Family History Father Family Medical History: Hypertension Medications and Allergies Home Medications Medication Instructions Recorded Confirmed Type Buprenorphine/Naloxone 8Mg/2Mg 1.5 film SL 07/16/22 09/26/23 History [Suboxone 8-2Mg Film] Losartan/Hydrochlorothiazide 1 tab PO 07/16/22 09/26/23 History [Losartan-Hctz 100-25 mg Tab] Citalopram Hydrobromide [CeleXA] 40 mg PO HS 09/26/23 09/26/23 History Dextroamphetamine/Amphetamine 20 mg PO TID 09/26/23 09/26/23 History [Adderall] Metoprolol Succinate (ER) [Toprol 50 mg PO HS 09/26/23 09/26/23 History Xl] Mirtazapine [Remeron] 15 mg PO 09/26/23 09/26/23 History Allergies Allergy/AdvReac Type Severity Reaction Status Date / Time No Known Allergies Allergy Verified 09/26/23 07:48 Surgical - Exam Vital Signs Temp Pulse Resp BP Pulse Ox 98.2 F 102 H 20 133/80 95 09/25/23 21:14 09/25/23 21:14 09/25/23 21:14 09/25/23 21:14 09/25/23 21:14 - General well developed, no distress - Eyes PERRL - ENT normal pinna - Neck no masses - Respiratory normal expansion - Cardiovascular Rhythm: regular - Abdomen Abdomen: soft, non tender - Integumentary The patient has multiple subcutaneous scabs all over his body related to injection sites.all over his body related to injection sites. Patient has significant swelling of his Patient is significant swelling of his right hand related to injection. right hand related to injection. There may be a deep abscess in the right hand.de There may ep abscess in the right hand.be a Results - Labs 09/25/23 22:25 09/25/23 22:25 Abnormal Lab Results - Last 24 Hours (Table) 09/25/23 09/25/23 Range/Units 22:25 22:25 WBC 13.4 H (3.8-10.6) k/uL RBC 3.66 L (4.30-5.90) m/uL Hgb 10.9 L (13.0-17.5) gm/dL Hct 34.2 L (39.0-53.0) % Neutrophils # 10.9 H (1.3-7.7) k/uL Sodium 133 L (137-145) mmol/L Chloride 97 L (98-107) mmol/L Glucose 112 H (74-99) mg/dL Albumin 3.3 L (3.5-5.0) g/dL Microbiology - Last 24 Hours (Table) 09/25/23 22:25 Gram Stain - Preliminary Leg - Right Diabetes panel 09/25/23 Range/Units 22:25 Sodium 133 L (137-145) mmol/L Potassium 3.8 (3.5-5.1) mmol/L Chloride 97 L (98-107) mmol/L Carbon Dioxide 29 (22-30) mmol/L BUN 14 (9-20) mg/dL Creatinine 0.75 (0.66-1.25) mg/dL Glucose 112 H (74-99) mg/dL Calcium 8.7 (8.4-10.2) mg/dL AST 20 (17-59) U/L ALT 16 (4-49) U/L Alkaline Phosphatase 96 (38-126) U/L Total Protein 6.4 (6.3-8.2) g/dL Albumin 3.3 L (3.5-5.0) g/dL Calcium panel 09/25/23 Range/Units 22:25 Calcium 8.7 (8.4-10.2) mg/dL Albumin 3.3 L (3.5-5.0) g/dL Pituitary panel 09/25/23 Range/Units 22:25 Sodium 133 L (137-145) mmol/L Potassium 3.8 (3.5-5.1) mmol/L Chloride 97 L (98-107) mmol/L Carbon Dioxide 29 (22-30) mmol/L BUN 14 (9-20) mg/dL Creatinine 0.75 (0.66-1.25) mg/dL Glucose 112 H (74-99) mg/dL Calcium 8.7 (8.4-10.2) mg/dL Adrenal panel 09/25/23 Range/Units 22:25 Sodium 133 L (137-145) mmol/L Potassium 3.8 (3.5-5.1) mmol/L Chloride 97 L (98-107) mmol/L Carbon Dioxide 29 (22-30) mmol/L BUN 14 (9-20) mg/dL Creatinine 0.75 (0.66-1.25) mg/dL Glucose 112 H (74-99) mg/dL Calcium 8.7 (8.4-10.2) mg/dL Total Bilirubin 0.4 (0.2-1.3) mg/dL AST 20 (17-59) U/L ALT 16 (4-49) U/L Alkaline Phosphatase 96 (38-126) U/L Total Protein 6.4 (6.3-8.2) g/dL Albumin 3.3 L (3.5-5.0) g/dL Assessment and Plan Assessment: Heroin IV drug abuse.Hattie IV drug abuse. Patient should have a hand surgeon consulted regarding his right hand swelling. Patient should have a hand surgeon consultation regarding his right hand swelling. His other cutaneous abscesses will be manHis other cutaneous abscesses will be managed with IV antibiotics. with IV antibiotics.[email or web address]
[2023-09-26] MEDS: PATIENT'S OWN (Buprenorphine/Naloxone 8mg/2mg 1 EACH Film) SUBLINGUAL SCH (21:23)
[2023-09-26] MEDS: METOPROLOL SUCCINATE (ER) 50 MG TAB.ER.24H PO SCH (21:24)
[2023-09-26] MEDS: MIRTAZAPINE 15 MG TAB PO SCH (21:24)
[2023-09-26] MEDS: CITALOPRAM HYDROBROMIDE 20 MG TAB PO SCH (21:24)
--- NOTE | 2023-09-27 06:46 | P.CONS ---
History of Present Illness - Reason for Consult Consult date: 09/26/23 Multiple abscesses, history of IVDA Requesting physician: Reji Vieira - Chief Complaint Pain and redness to the right hand dorsum as well as bilateral leg x days - History of Present Illness Patient is a 37-year-old male with a past medical history significant for IV drug use presenting to the hospital with multiple skin abscesses involving the dorsum aspect of his right hand right leg and left thigh area patient apparently has been trying to inject which she has been doing for almost 20 years and seem to have lost the veins, patient be complaining of multiple abscesses as mentioned above at different location from IV drug use that has progressively getting bigger in size and becoming more painful patient describing the pain to be sharp moderate in intensity without limitation with some purulent drainage especially from the right hand and left thigh area patient had denies high-grade fever did have some chills and no fever was recorded on presentation to the hospital patient was not tachycardic hypotensive or hypoxic and no need for supplemental oxygen did have a white count of 13.4 with a left shift creatinine 0.75 liver enzymes are normal local cultures obtained which are currently pending as well as blood cultures patient has been started on vancomycin infectious disease was consulted for further management of antibiotic therapy Review of Systems Positive point and negatives has been mentioned in the HPI, complete review of systems was performed and all other systems are negative Past Medical History Past Medical History: Hypertension Additional Past Medical History / Comment(s): edema and redness to hands last year. seen by Dr Adame. chemical stress test. aching in knees. has not been tested for sleep apnea yet. History of Any Multi-Drug Resistant Organisms: None Reported Past Surgical History: Orthopedic Surgery Additional Past Surgical History / Comment(s): meniscus repair rt knee, orbital fx repair. Past Anesthesia/Blood Transfusion Reactions: No Reported Reaction Past Psychological History: Anxiety, Depression Smoking Status: Current every day smoker Past Alcohol Use History: None Reported Past Drug Use History: Heroin, IV Drug Use - Past Family History Father Family Medical History: Hypertension Medications and Allergies Home Medications Medication Instructions Recorded Confirmed Type Buprenorphine/Naloxone 8Mg/2Mg 1.5 film SL HS 07/16/22 09/26/23 History [Suboxone 8-2Mg Film] Losartan/Hydrochlorothiazide 1 tab PO HS 07/16/22 09/26/23 History [Losartan-Hctz 100-25 mg Tab] Citalopram Hydrobromide [CeleXA] 40 mg PO HS 09/26/23 09/26/23 History Dextroamphetamine/Amphetamine 20 mg PO TID 09/26/23 09/26/23 History [Adderall] Metoprolol Succinate (ER) [Toprol 50 mg PO HS 09/26/23 09/26/23 History Xl] Mirtazapine [Remeron] 15 mg PO HS 09/26/23 09/26/23 History Allergies Allergy/AdvReac Type Severity Reaction Status Date / Time No Known Allergies Allergy Verified 09/26/23 07:48 Physical Exam Vitals: Vital Signs Temp Pulse Resp BP Pulse Ox 09/26/23 08:31 64 22 121/79 92 L 09/26/23 06:32 97.7 F 77 15 119/79 98 09/26/23 05:00 72 20 104/61 98 09/26/23 04:00 74 16 102/58 96 09/26/23 03:00 79 18 111/63 98 09/26/23 02:00 77 15 119/67 97 09/26/23 01:00 81 16 108/65 97 09/26/23 00:00 80 19 129/80 95 09/25/23 23:17 85 20 117/86 95 09/25/23 21:53 94 20 133/83 96 09/25/23 21:14 98.2 F 102 H 20 133/80 95 Intake and Output 09/25/23 09/26/23 09/26/23 22:59 06:59 14:59 Other: Weight 100.244 kg GENERAL DESCRIPTION: Middle-aged male lying in bed, no distress. No tachypnea or accessory muscle of respiration use. HEENT: Shows Pallor , no scleral icterus. Oral mucous membrane is dry. No pharyngeal erythema or thrush NECK: Trachea central, no thyromegaly. LUNGS: Unlabored breathing. Clear to auscultation anteriorly. No wheeze or crackle. HEART: S1, S2, regular rate and rhythm. No loud murmur ABDOMEN: Soft, no tenderness , guarding or rigidity, no organomegaly EXTREMITIES: Patient did have abscess to the dorsum aspect of the right hand as well as the right lower leg and left thigh with some purulent drainage and surrounding redness SKIN: No rash, no masses palpable. NEUROLOGICAL: The patient is awake, alert, oriented x3, mood and affect normal. Results CBC & Chem 7: 09/25/23 22:25 09/25/23 22:25 Labs: Abnormal Lab Results - Last 24 Hours (Table) 09/25/23 09/25/23 Range/Units 22:25 22:25 WBC 13.4 H (3.8-10.6) k/uL RBC 3.66 L (4.30-5.90) m/uL Hgb 10.9 L (13.0-17.5) gm/dL Hct 34.2 L (39.0-53.0) % Neutrophils # 10.9 H (1.3-7.7) k/uL Sodium 133 L (137-145) mmol/L Chloride 97 L (98-107) mmol/L Glucose 112 H (74-99) mg/dL Albumin 3.3 L (3.5-5.0) g/dL Assessment and Plan (1) IV drug user Current Visit: Yes Status: Acute Code(s): F19.90 - OTHER PSYCHOACTIVE SUBSTANCE USE, UNSPECIFIED, UNCOMPLICATED SNOMED Code(s): 355574538 (2) Abscess of multiple sites Current Visit: Yes Status: Acute Code(s): L02.91 - CUTANEOUS ABSCESS, UNSPECIFIED SNOMED Code(s): 297994270 (3) Leukocytosis Current Visit: Yes Status: Acute Code(s): D72.829 - ELEVATED WHITE BLOOD CELL COUNT, UNSPECIFIED SNOMED Code(s): 061902709 Plan: 1patient presented hospital with multiple skin abscesses especially while on the dorsum aspect of the right hand right lower leg and left medial thigh area from injection drug use likely from gram-positive skin lloyd such as MRSA and less likely gram-negative infection. 2await surgical drainage and deep culture and also follow-up on the blood cultures. 3vancomycin pharmacy to dose target trough of 15 while watching kidney function and Vanco trough closely. We will follow on clinical condition and cultures to further adjust medication if needed Thank you for this consultation we will follow the patient along with you Dictation was produced using Player[employer] dictation software. please excuse any grammatical, word or spelling errors. Time with Patient: Greater than 30
[2023-09-27 09:52] LABS: HCT 39.2 % (39.0-53.0); HGB 12.3 gm/dL (13.0-17.5); MCHC 31.2 g/dL (31.0-37.0); MCV 95.9 fL (80.0-100.0); Platelet Count 425 k/uL (150-450); RBC 4.09 m/uL (4.30-5.90); RDW 12.9 % (11.5-15.5); WBC 8.4 k/uL (3.8-10.6)
[2023-09-27 10:02] LABS: African American GFR (CKD) >90 (>60 ml/min/1.73 sqM); Anion Gap 4 mmol/L; Blood Urea Nitrogen 13 mg/dL (9-20); Calcium 8.8 mg/dL (8.4-10.2); Carbon Dioxide 27 mmol/L (22-30); Chloride 107 mmol/L (98-107); Glucose 100 mg/dL (74-99); Non-African American GFR(CKD) >90 (>60 ml/min/1.73 sqM); Sodium 138 mmol/L (137-145)
[2023-09-27] MEDS: VANCOMYCIN TROUGH DUE 1 EACH MISC MISCELLANE ONE (10:04)
[2023-09-27 10:06] LABS: Potassium 4.9 mmol/L (3.5-5.1)
--- NOTE | 2023-09-27 10:54 | P.CNOR ---
History of Present Illness - [facility] Consult date: 09/27/23 Consult reason: other (Abscesses to multiple extremities) History of present illness: Patient is a 37-year-old male who presented to [facility] on 09/26[facility]23 for evaluation of multiple soft tissue abscesses to the bilateral upper and lower extremities. Patient was admitted under internal medicine with multiple consults placed for evaluation. Patient's been evaluated by infectious disease and general surgery. Due to the soft tissue swelling and obvious abscess to the right hand our orthopedic service was consulted. Patient was evaluated today at bedside, he is resting in the observation unit. Patient is having minimal discomfort at this time to any of the abscesses. The right hand seems to be the most symptomatic at this point. There is significant redness, swelling and purulent drainage noted. Patient has a known history of IV drug abuse that has been present for multiple years. Patient denies having any previous surgery for I&D procedures from abscesses. Apparently the patient was taking some oral antibiotics which seem to not do much. Patient has remained on IV antibiotics since being in the hospital. Review of Systems Constitutional: Reports as per [facility] Past Medical History Past Medical History: Hypertension Additional Past Medical History / Comment(s): edema and redness to hands last year. seen by Dr Adame. chemical stress test. aching in knees. has not been scar gracie for sleep apnea yet. History of Any Multi-Drug Resistant Organisms: None Reported Past Surgical History: Orthopedic Surgery Additional Past Surgical History / Comment(s): meniscus repair rt knee, orbital fx repair. Past Anesthesia/Blood Transfusion Reactions: No Reported Reaction Past Psychological History: Anxiety, Depression Smoking Status: Current every day smoker Past Alcohol Use History: None Reported Past Drug Use History: Heroin, IV Drug Use - Past Family History Father Family Medical History: Hypertension Medications and Allergies Home Medications Medication Instructions Recorded Confirmed Type Buprenorphine/Naloxone 8Mg/2Mg 1.5 film SL HS 07/16/22 09/26/23 History [Suboxone 8-2Mg Film] Losartan/Hydrochlorothiazide 1 tab PO HS 07/16/22 09/26/23 History [Losartan-Hctz 100-25 mg Tab] Citalopram Hydrobromide [CeleXA] 40 mg PO HS 09/26/23 09/26/23 History Dextroamphetamine/Amphetamine 20 mg PO TID 09/26/23 09/26/23 History [Adderall] Metoprolol Succinate (ER) [Toprol 50 mg PO HS 09/26/23 09/26/23 History Xl] Mirtazapine [Remeron] 15 mg PO HS 09/26/23 09/26/23 History Allergies Allergy/AdvReac Type Severity Reaction Status Date / Time No Known Allergies Allergy Verified 09/26/23 07:48 Physical Examination Osteopathic Statement: *. No significant issues noted on an osteopathic structural exam other than those noted in the History and Physical/Consult. Right hand: Large abscess present on the dorsum of the hand between the first and second digit. There is significant redness and soft tissue swelling to the area, there is purulent material and granulation tissue surrounding the wound. There is soft tissue swelling present in that area also. Patient denies any numbness or tingling to the dorsum or palmar aspect of the hand or digits. He is able to wiggle all the fingers no difficulty. There is no erythema noted on the flexor aspect of the hand, wrist. Flexion and extension are intact at the wrist, there is no discomfort appreciated. There is no significant swelling appreciated at the radiocarpal joint. There is no significant swelling, redness involving the forearm. Radial and ulnar pulse are 2+. Patient has no discomfort with range of motion of the elbow. Bilateral lower extremities: There are multiple abrasions/scabs and open wounds to the bilateral lower extremities. Right lower extremity on the lateral aspect of the calf region has a 2+/3 cm skin opening with surrounding erythema. There is mild purulent drainage noted. There is minimal soft tissue swelling present in that area. A smaller area about 1 cm in length lesion on the medial aspect of the thigh is present, there was no drainage surrounding that area, minimal erythema present. Left lower extremity, there is a moderately sized abscess present in the medial aspect of the upper thigh. There is surrounding erythema to the area, there is mild purulent drainage noted. Results - Labs Labs: Abnormal Lab Results - Last 24 Hours (Table) 09/27/23 09/27/23 Range/Units 09:30 09:30 RBC 4.09 L (4.30-5.90) m/uL Hgb 12.3 L (13.0-17.5) gm/dL Glucose 100 H (74-99) mg/dL Microbiology - Last 24 Hours (Table) 09/25/23 22:25 Gram Stain - Preliminary Leg - Right H & H 09/25/23 09/27/23 Range/Units 22:25 09:30 Hgb 10.9 L 12.3 L (13.0-17.5) gm/dL Hct 34.2 L 39.2 (39.0-53.0) % Result Diagrams: 09/27/23 09:30 09/27/23 09:30 - Diagnostic results Wrist/Hand x-ray: report reviewed, image reviewed (Images and reports reviewed of the right hand x-rays. Images demonstrate no acute fractures or dislocations, there is no obvious foreign body present, there is soft tissue swelling present on the dorsum of the hand) Assessment and Plan Assessment: 1.) Right dorsal hand abscess, draining 2.) History of IV drug abuse Plan: I was able to see the patient at bedside today. He has signs of a dorsal hand abscess. I was able to express purulence from two windows on the abscess where he is currently draining from. He has no signs of a deep space infection or septic arthritis. He will start soapy soaks TID for the right hand and if the wound continues to stay open and drain we can avoid any surgical intervention since his wound is already draining on the hand. If he fails to improve or if his symptoms worsen over the next 24 hours formal I&D will be performed in the operating room of the right hand. The patient was agreeable with this plan of action. -Audi Davis DO Orthopedic hand/upper extremity surgeon Time with Patient: Less than 30
--- NOTE | 2023-09-27 11:41 | P.CONS ---
History of Present Illness - Reason for Consult Consult date: 09/27/23 wound care - History of Present Illness This is a 37-year-old patient with history of IV drug abuse being seen by the wound care center for nonhealing ulceration to the right dorsal hand right lateral calf and right left thigh. Patient is having an I&D to the right dorsal hand with general surgery. Right lateral calf ulceration measures approximately 1 x 1 x 1.3 cm with fat layer exposure granulation seen throughout. Wound edges are attached to the wound base no tunneling or undermining noted. Left thigh ulceration measures approximately 2 x 1 x 0.3 cm with significant amount of slough and nonviable tissue present. Eschar noted to the site. Wound edges are attached to the wound base. No granulation seen within the wound base. Review Of Systems: Constitutional: No fever, no chills, no night sweats. No weight change. No weakness, fatigue or lethargy. No daytime sleepiness. Integumentary:reports wounds, no lesions. No rash or pruritus. No unusual bruising. No change in hair or nails. Physical exam: General Appearance: Alert, cooperative, no distress, appears stated age. Skin: See HPI all other Skin color, texture, tugor normal, no rashes or lesions. Neurologic: Alert oriented x3 Assessment: 1. Nonhealing ulceration right dorsal hand with fat layer exposure 2. Nonhealing ulceration right calf with fat layer exposure 3. Nonhealing ulceration left thigh with fat layer exposure 4. IV drug abuse Plan: 1.Right lateral calf: Apply absorptive silver, saline moist gauze, dry gauze, bordered foam. Left anterior thigh: Apply honey gel dry gauze and bordered foam. Change Tuesday. Patient is scheduled for an I&D of right dorsal hand with general surgery tomorrow. Patient would benefit from advanced wound care and wound care setting would be happy to see him upon discha rge. Thank you for the consultation any questions please contact the wound care center DNP note has been reviewed and discussed with Dr. Barreto and the impression and plan of care has been directed as dictated. Past Medical History Past Medical History: Hypertension Additional Past Medical History / Comment(s): edema and redness to hands last year. seen by Dr Adame. chemical stress test. aching in knees. has not been tested for sleep apnea yet. History of Any Multi-Drug Resistant Organisms: None Reported Past Surgical History: Orthopedic Surgery Additional Past Surgical History / Comment(s): meniscus repair rt knee, orbital fx repair. Past Anesthesia/Blood Transfusion Reactions: No Reported Reaction Past Psychological History: Anxiety, Depression Smoking Status: Current every day smoker Past Alcohol Use History: None Reported Past Drug Use History: Heroin, IV Drug Use - Past Family History Father Family Medical History: Hypertension Medications and Allergies Home Medications Medication Instructions Recorded Confirmed Type Buprenorphine/Naloxone 8Mg/2Mg 1.5 film SL HS 07/16/22 09/26/23 History [Suboxone 8-2Mg Film] Losartan/Hydrochlorothiazide 1 tab PO HS 07/16/22 09/26/23 History [Losartan-Hctz 100-25 mg Tab] Citalopram Hydrobromide [CeleXA] 40 mg PO HS 09/26/23 09/26/23 History Dextroamphetamine/Amphetamine 20 mg PO TID 09/26/23 09/26/23 History [Adderall] Metoprolol Succinate (ER) [Toprol 50 mg PO HS 09/26/23 09/26/23 History Xl] Mirtazapine [Remeron] 15 mg PO HS 09/26/23 09/26/23 History Allergies Allergy/AdvReac Type Severity Reaction Status Date / Time No Known Allergies Allergy Verified 09/26/23 07:48 Physical Exam Vitals: Vital Signs Temp Pulse Pulse Resp BP BP Pulse Ox 09/27/23 08:00 98 F 70 16 125/78 99 09/27/23 05:47 98.4 F 79 16 124/66 98 09/27/23 02:30 72 16 118/81 95 09/26/23 21:27 77 16 116/75 97 09/26/23 16:14 85 16 127/88 95 09/26/23 12:01 78 18 128/83 95 Results CBC & Chem 7: 09/27/23 09:30 09/27/23 09:30 Labs: Abnormal Lab Results - Last 24 Hours (Table) 09/27/23 09/27/23 Range/Units 09:30 09:30 RBC 4.09 L (4.30-5.90) m/uL Hgb 12.3 L (13.0-17.5) gm/dL Glucose 100 H (74-99) mg/dL Microbiology - Last 24 Hours (Table) 09/25/23 22:25 Gram Stain - Preliminary Leg - Right Wound Culture - Preliminary Strep A Assessment and Plan (1) Non-pressure chronic ulcer of right calf with fat layer exposed Current Visit: Yes Status: Acute Code(s): L97.212 - NON-PRESSURE CHRONIC ULCER OF RIGHT CALF W FAT LAYER EXPOSED SNOMED Code(s): 33526960758868187 (2) Non-pressure chronic ulcer of left thigh with fat layer exposed Current Visit: Yes Status: Acute Code(s): L97.122 - NON-PRESSURE CHRONIC ULCER OF LEFT THIGH W FAT LAYER EXPOSED SNOMED Code(s): 14071981533049096 (3) Non-pressure chronic ulcer of skin of other sites with fat layer exposed Current Visit: Yes Status: Acute Code(s): L98.492 - NON-PRS CHRONIC ULCER OF SKIN OF SITES W FAT LAYER EXPOSED SNOMED Code(s): 23122577 (4) IV drug user Current Visit: Yes Status: Acute Code(s): F19.90 - OTHER PSYCHOACTIVE SUB STANCE USE, UNSPECIFIED, UNCOMPLICATED SNOMED Code(s): 054305287
--- NOTE | 2023-09-27 11:53 | P.PN ---
Subjective Progress Note Date: 09/27/23 Principal diagnosis: Reason for follow-up is multiple skin abscesses Patient is a 37-year-old male with a past medical history significant for IV drug use presenting to the hospital with multiple skin abscesses involving the dorsum aspect of his right hand right leg and left thigh area for which the patient has been admitted to hospital. On today's evaluation that is 09/27/2023,the patient denies any fever or any chills, patient is breathing comfortably on room air, the patient denies chest pain shortness of breath and no significant cough, patient denies abdominal pain, no nausea vomiting or diarrhea. Pain to the right hand dorsum and lower extremity slightly decreased compared to yesterday. Patient with normalized to 8.4 creatinine 0.69 Vanco trough was 12.3 culture culture group B strep Objective - Vital Signs Vital signs: Vital Signs Temp 98 F 09/27/23 08:00 Pulse 70 09/27/23 08:00 Resp 16 09/27/23 08:00 BP 125/78 09/27/23 08:00 Pulse Ox 99 09/27/23 08:00 FiO2 - Exam GENERAL DESCRIPTION: Middle-age male lying in bed in no distress RESPIRATORY SYSTEM: Unlabored breathing , decreased breath sounds at bases HEART: S1 S2 regular rate and rhythm , ABDOMEN: Soft , no tenderness EXTREMITIES: Right hand dorsum open wound, drainage of the abscess with surrounding redness slightly decreased leg wound is currently covered - Labs CBC & Chem 7: 09/27/23 09:30 09/27/23 09:30 Labs: Abnormal Lab Results - Last 24 Hours (Table) 09/27/23 09/27/23 Range/Units 09:30 09:30 RBC 4.09 L (4.30-5.90) m/uL Hgb 12.3 L (13.0-17.5) gm/dL Glucose 100 H (74-99) mg/dL Microbiology - Last 24 Hours (Table) 09/25/23 22:25 Gram Stain - Preliminary Leg - Right Wound Culture - Preliminary Strep A Assessment and Plan (1) IV drug user Current Visit: Yes Status: Acute Code(s): F19.90 - OTHER PSYCHOACTIVE SUBSTANCE USE, UNSPECIFIED, UNCOMPLICATED SNOMED Code(s): 395231283 (2) Abscess of multiple sites Current Visit: Yes Status: Acute Code(s): L02.91 - CUTANEOUS ABSCESS, UNSPECIFIED SNOMED Code(s): 175945024 (3) Leukocytosis Current Visit: Yes Status: Acute Code(s): D72.829 - ELEVATED WHITE BLOOD CELL COUNT, UNSPECIFIED SNOMED Code(s): 348160277 Plan: 1patient presented hospital with multiple skin abscesses especially while on the dorsum aspect of the right hand right lower leg and left medial thigh area from injection drug use likely from gram-positive skin lloyd such as MRSA and less likely gram-negative infection. 2patient is currently waiting for surgical drainage and deep culture, blood cultures pending wound culture growing group A strep 3patient to continue with vancomycin pharmacy to dose target trough of 15 while waiting for the culture to finalize Dictation was produced using [employer] dictation software. please excuse any grammatical, word or spelling errors. Time with Patient: Less than 30
--- NOTE | 2023-09-27 12:17 | P.PN ---
Subjective Progress Note Date: 09/27/23 The patient remained stable. He has no complaints of the abscess skin areas on his legs. Patient has had some drainage from his right hand. On exam vital signs are stable. Multiple small cutaneous healing abscesses of lower extremities related to IV drug abuse. The patient's hand will be managed by Dr. Pierce. Objective - Vital Signs Vital signs: Vital Signs Temp 98 F 09/27/23 08:00 Pulse 70 09/27/23 08:00 Resp 16 09/27/23 08:00 BP 125/78 09/27/23 08:00 Pulse Ox 99 09/27/23 08:00 FiO2 - Labs CBC & Chem 7: 09/27/23 09:30 09/27/23 09:30 Labs: Abnormal Lab Results - Last 24 Hours (Table) 09/27/23 09/27/23 Range/Units 09:30 09:30 RBC 4.09 L (4.30-5.90) m/uL Hgb 12.3 L (13.0-17.5) gm/dL Glucose 100 H (74-99) mg/dL Microbiology - Last 24 Hours (Table) 09/25/23 22:25 Gram Stain - Preliminary Leg - Right Wound Culture - Preliminary Strep A
--- NOTE | 2023-09-27 16:07 | P.PN ---
Subjective Progress Note Date: 09/27/23 Hospital course: Patient is a 37-year-old male with a past medical history of IVDA with heroin. He presented to the emergency department secondary to multiple abscess sites concerning for infection with reports of fever and chills. Patient reports these abscesses are due to injecting heroin and missing the vein. Upon arrival to our facility, patient underwent evaluation in the emergency department. Vital signs upon arrival show blood pressure 133/80, heart rate 102, respiratory rate 20, temp 98.2 F, and SpO2 of 95% on room air. Labs completed and reviewed. CBC showing leukocytosis with WBC count of 13.4 and normocytic anemia with hemoglobin of 10.9. BMP showing hyponatremia with sodium of 133, hypochloremia with chloride of 97, and blood glucose of 112. Lactic acid was 1.0. Liver profile unremarkable with the exception of hypoalbuminemia with albumin of 3.3. Blood Cultures were obtained and patient was started on IV a ntibiotics with vancomycin. Patient admitted under our services with consultation to infectious disease and general surgery for I&D. Physical exam: Vital signs reviewed and stable. General: Nontoxic, no distress and appears stated age. Derm: Skin warm and dry, normal coloration for ethnicity. Patient has multiple abscesses to upper and lower extremities with large abscess concerning for infection to the dorsal surface of right hand and left upper thigh. Right hand and left thigh with swelling, increased warmth and large abscesses. Head: Atraumatic, normocephalic and symmetric. Eyes: EOMs intact, no lid lag, and anicteric sclera Mouth: no lip lesions, mucus membranes moist Cardiovascular: regular rate and rhythm with normal S1S2, no murmur, positive posterior tibial pulses bilaterally, and cap refill < 2 seconds. Lungs: Respirations even, regular, and unlabored on room air. Lungs CTA bilaterally, no rhonchi, no rales, no wheezing, and no accessory muscle usage. Abdominal: soft, nontender to palpation, no guarding, no appreciable organomegaly Ext: No gross muscle atrophy, no edema, no contractures. Movement and sensation intact, patient with limited ROS of right hand, unable to make a tight fist secondary to swelling and pain. Neuro: Speech clear, face symmetrical and CN II-XII grossly intact with no noted focal neuro deficits Psych: Alert and oriented to person, place, time, and situation. Appropriate and pleasant affect. Assessment and Plan of Care: Sepsis (tachycardia, leukocytosis, and reports of fever) secondary to abscess with surrounding cellulitis of right hand and left leg. IVDA with heroin Anxiety with depression -Continue IV antibiotics with vancomycin 1500 mg every 8 hours. Will monitor renal function and vancomycin trough closely for any signs/symptoms of vancomycin induced renal toxicity. -Rule out Infective endocarditis by obtaining an echocardiogram. -Infectious disease consulted, appreciate recommendations -Orthopedic surgery consulted for evaluation for I&D of right hand, patient is scheduled to undergo I&D with orthopedic surgery tomorrow. -General surgery consulted for possible I&D of left thigh, discussed with general surgeon stating no plans for surgical intervention at this time -Symptomatic care and pain management with Dilaudid and Toradol as directed for pain management. -Follow-up on blood culture and wound culture results. -Patient to continue daily medication regimen with Suboxone 8 mg / 2 mg nightly, Celexa 40 mg nightly, and Remeron 15 mg nightly. -X-ray right hand showing diffuse soft tissue swelling greater along the dorsum of the hand with no acute osseous abnormality radiographically apparent. -Ultrasound completed of left upper thigh showing hematoma/fluid-filled heterogeneous complex measuring 3.2 x 3.4 x 3.1 cm with hypervascularity with an area of concern may be infiltrating through the soft tissues of the thigh. Hypertension -Continue daily medication regimen with losartan/hydrochlorothiazide 50/12.5 mg tablets taking 2 tablets daily and Metroprolol 50 mg nightly. Data and imaging reviewed: -X-ray right hand showing diffuse soft tissue swelling greater along the dorsum of the hand with no acute osseous abnormality radiographically apparent. -Ultrasound completed of left upper thigh showing hematoma/fluid-filled heterogeneous complex measuring 3.2 x 3.4 x 3.1 cm with hypervascularity with an area of concern may be infiltrating through the soft tissues of the thigh. -Vital signs reviewed. Blood pressure 125/78, heart rate 70, respiratory rate 16, temp 98.0 F, and SpO2 of 99% on room air. -Labs completed and reviewed. CBC showing stable normocytic anemia with hemoglobin of 12.3 and resolution of leukocytosis with WBC count decreasing from previous 13.4 down to 8.4 this morning. BMP was unremarkable. CODE STATUS: Full code DVT prophylaxis: Heparin Anticipated discharge date: Pending clinical course Anticipated discharge place: Home Patient was seen independently by Nurse Pracitioner. This document was prepared using [employer] dictation software. Please allow for errors in it applications analyst, while rare they do occur. . Objective - Vital Signs Vital signs: Vital Signs Temp 98.4 F 09/27/23 05:47 Pulse 79 09/27/23 05:47 Resp 16 09/27/23 05:47 BP 124/66 09/27/23 05:47 Pulse Ox 98 09/27/23 05:47 FiO2 - Labs CBC & Chem 7: 09/27/23 09:30 09/27/23 09:30 Labs: Microbiology - Last 24 Hours (Table) 09/25/23 22:25 Gram Stain - Preliminary Leg - Right
[2023-09-27] MEDS: VANCOMYCIN 1,500 MG in SODIUM CHLORIDE 0.9% 500 ML 500 ML IVPB SCH (17:02)
[2023-09-28 02:02] VITALS: TEMP 98
--- NOTE | 2023-09-28 07:49 | CA ---
Transthoracic Echo Report Name: David Alcala Age: 37 Gender: M : 1985 Exam Date: 09/27/2023 14:25 Exam Location: [facility] Ht (in): 75 Wt (lb): 221 Ordering Physician: Keli Gant MD Attending/Referring Phys: [id number], Alfreda [employer] Assistant Beverly James RDCS Procedure CPT: Indications: IVDA rule out infective endocarditis Cardiac Hx: Technical Quality: Good Contrast 1: Total Dose (mL): Contrast 2: Total Dose (mL): MEASUREMENTS (Male / Female) Normal Values 2D ECHO LV Diastolic Diameter PLAX 5.3 cm 4.2 - 5.9 / 3.9 - 5.3 cm LV Systolic Diameter PLAX 3.4 cm IVS Diastolic Thickness 1.1 cm 0.6 - 1.0 / 0.6 - 0.9 cm LVPW Diastolic Thickness 1.2 cm 0.6 - 1.0 / 0.6 - 0.9 cm LV Relative Wall Thickness 0.4 LVOT Diameter 2.3 cm LV Diastolic Volume MOD BP 163.0 cm??? 67 - 155 / 56 - 104 cm??? LV Systolic Volume MOD BP 69.2 cm??? 22 - 58 / 19 - 49 cm??? LV Ejection Fraction MOD BP 57.6 % >= 55 % LV Cardiac Index MOD BP 2510.8 cm???/min???m??? LV Diastolic Volume MOD 4C 183.3 cm??? LV Systolic Volume MOD 4C 74.8 cm??? LV Ejection Fraction MOD 4C 59.2 % LV Cardiac Index MOD 4C 2902.5 cm???/min???m??? LV Diastolic Length 4C 9.5 cm LV Systolic Length 4C 7.9 cm LV Diastolic Volume MOD 2C 141.6 cm??? LV Systolic Volume MOD 2C 57.2 cm??? LV Ejection Fraction MOD 2C 59.6 % LV Cardiac Index MOD 2C 2258.6 cm???/min???m??? LV Diastolic Length 2C 9.2 cm LV Systolic Length 2C 7.0 cm LA Volume 57.5 cm??? 18 - 58 / 22 - 52 cm??? LA Volume Index 24.8 cm???/m??? 16 - 28 cm???/m??? Ascending Aorta Diameter 3.5 cm DOPPLER AV Peak Velocity 188.9 cm/s AV Peak Gradient 14.3 mmHg AV Mean Velocity 116.1 cm/s AV Mean Gradient 6.4 mmHg AV Velocity Time Integral 32.7 cm LVOT Peak Velocity 140.3 cm/s LVOT Peak Gradient 7.9 mmHg LVOT Velocity Time Integral 26.4 cm LVOT Stroke Volume 106.9 cm??? LVOT Stroke Volume Index 46.7 ml/m??? LVOT Cardiac Index 2860.1 cm???/min???m??? AV Area Cont Eq vti 3.3 cm??? AV Area Cont Eq pk 3.0 cm??? MV Area PHT 3.2 cm??? Mitral E Point Velocity 76.3 cm/s Mitral A Point Velocity 45.5 cm/s Mitral E to A Ratio 1.7 MV Deceleration Time 238.2 ms TR Peak Velocity 267.5 cm/s TR Peak Gradient 28.6 mmHg Right Atrial Pressure 5.0 mmHg Pulmonary Artery Systolic Pressu 33.6 mmHg Right Ventricular Systolic Press 33.6 mmHg PV Peak Velocity 125.1 cm/s PV Peak Gradient 6.3 mmHg FINDINGS Left Ventricle Left ventricular ejection fraction is estimated at 55-60 %. Mildly increased septal wall thickness. Mildly increased left ventricular diastolic volume. Mildly increased left ventricular systolic volume. No obvious regional wall motion abnormalities. Right Ventricle Normal right ventricular size and function. Right ventricular systolic pressure within normal limits. Right Atrium Normal right atrial size. Left Atrium Mildly increased left atrial area. Mitral Valve Structurally normal mitral valve. No evidence for mitral valve prolapse. No mitral stenosis. Trace mitral regurgitation. Aortic Valve Trileaflet aortic valve. No aortic valve stenosis or regurgitation. Tricuspid Valve Structurally normal tricuspid valve. No tricuspid stenosis. Mild tricuspid regurgitation. Pulmonic Valve Structurally normal pulmonic valve. No pulmonic stenosis. No pulmonic regurgitation. Pericardium No pericardial effusion. Aorta Normal size aortic root and proximal ascending aorta. CONCLUSIONS Left ventricular ejection fraction 55-60% Mildly increased left ventricular wall thickness Trace mitral regurgitation Mild tricuspid regurgitation No vegetations noted Previewed by: Dr. Lam Palm DO (Electronically Signed) Final Date: 28 September 2023 07:49
[2023-09-28 08:34] VITALS: BP 129/76; PULSE 99; RESP 18
--- NOTE | 2023-09-28 12:05 | P.PN ---
Subjective Progress Note Date: 09/28/23 CHIEF COMPLAINT: Skin abscesses HISTORY OF PRESENT ILLNESS: Patient admitted to the hospital with right hand abscess and bilateral lower extremity abscesses. Patient reports that he is having some drainage from the right hand abscess. He is on IV antibiotics. He is followed by orthopedic service with right hand abscess. Afebrile. WBC yesterday 8.4 PHYSICAL EXAM: VITAL SIGNS: Reviewed. GENERAL: Well-developed in no acute distress. Skin: Right hand abscess swollen tender. Bilateral thigh small abscesses with dressing is clean dry and intact ASSESSMENT: 1. Hand abscess secondary to IVDA use 2. Small cutaneous healing abscess of lower extremities related to IV drug use PLAN: -Continue local wound care to the leg abscesses -Orthopedic service following hand abscess and scheduled for I&D today -Continue antibiotics per infectious disease Physician Executive Secretary Social Welfare note has been reviewed by physician. Signing provider agrees with the documented findings, assessment, and plan of care. Objective - Vital Signs Vital signs: Vital Signs Temp 98.0 F 09/28/23 08:00 Pulse 99 09/28/23 08:00 Resp 18 09/28/23 08:00 BP 129/76 09/28/23 08:00 Pulse Ox 99 09/28/23 08:00 FiO2 Intake & Output 09/27/23 09/28/23 09/28/23 18:59 06:59 18:59 Intake Total 1955 Output Total 300 Balance -300 195 Weight 100.244 kg Intake: Intake, IV Titration 1475 Amount Sodium Chloride 0.9% 1, 975 000 ml @ 130 mls/hr IV . Q7H42M [facility] Rx#:[id number] Vancomycin 1,500 mg In 500 Sodium Chloride 0.9% 500 ml 500 ml @ 167 mls/hr IVPB Q8H [facility] Rx#: [id number] Oral 480 Output: Urine 300 Other: Voiding Method Toilet Toilet # Voids 3 - Labs CBC & Chem 7: 09/27/23 09:30 09/27/23 09:30 Labs: Microbiology - Last 24 Hours (Table) 09/25/23 22:25 Gram Stain - Final Leg - Right Wound Culture - Final Strep A 09/25/23 22:25 Blood Culture - Preliminary Blood 09/25/23 22:25 Blood Culture - Preliminary Blood
--- NOTE | 2023-09-28 12:08 | P.PN ---
Subjective Progress Note Date: 09/28/23 Principal diagnosis: right dorsal hand abscess patient evaluated today at bedside, he is resting comfortably. He did one soapy soak yesterday. He feels that the hand is feeling a little bit better today compared to yesterday. He denies any fevers or chills at this time. Objective - Vital Signs Vital signs: Vital Signs Temp 98.0 F 09/28/23 08:00 Pulse 99 09/28/23 08:00 Resp 18 09/28/23 08:00 BP 129/76 09/28/23 08:00 Pulse Ox 99 09/28/23 08:00 FiO2 Intake & Output 09/27/23 09/28/23 09/28/23 18:59 06:59 18:59 Intake Total 1955 Output Total 300 Balance -300 1954 Weight 100.244 kg Intake: Intake, IV Titration 1475 Amount Sodium Chloride 0.9% 1, 975 000 ml @ 130 mls/hr IV . Q7H42M [facility] Rx#:[id number] Vancomycin 1,500 mg In 500 Sodium Chloride 0.9% 500 ml 500 ml @ 167 mls/hr IVPB Q8H [facility] Rx#: [id number] Oral 480 Output: Urine 300 Other: Voiding Method Toilet Toilet # Voids 3 - Exam Right hand: Large abscess present on the dorsum of the hand between the first and second digit. Erythema and soft tissue swelling seem improved since yesterday. Purulent drainage noted from 2 separate areas of the wound. Patient denies any numbness or tingling to the dorsum or palmar aspect of the hand or digits. He is able to wiggle all the fingers no difficulty. There is no erythema noted on the flexor aspect of the hand, wrist. Flexion and extension are intact at the wrist, there is no discomfort appreciated. There is no significant swelling appreciated at the radiocarpal joint. There is no significant swelling, redness involving the forearm. Radial and ulnar pulse are 2+. Patient has no discom fort with range of motion of the elbow. - Labs CBC & Chem 7: 09/27/23 09:30 09/27/23 09:30 Labs: Microbiology - Last 24 Hours (Table) 09/25/23 22:25 Gram Stain - Final Leg - Right Wound Culture - Final Strep A 09/25/23 22:25 Blood Culture - Preliminary Blood 09/25/23 22:25 Blood Culture - Preliminary Blood Assessment and Plan Assessment: Right dorsal hand abscess IVDA Other medical comorbidities Plan: I was able to express a significant amount apparent material from the right dorsal hand abscess at bedside. I discussed with nursing we would do an additional warm soapy soak prior to being evaluated by Dr. Davis. Continue NPO diet at this time Continue IV antibiotics Other medical specialty recommendations appreciated Further recommendations to follow Time with Patient: Less than 30
--- NOTE | 2023-09-28 12:27 | P.PN ---
Subjective Progress Note Date: 09/28/23 Principal diagnosis: Reason for follow-up is multiple skin abscesses Patient is a 37-year-old male with a past medical history significant for IV drug use presenting to the hospital with multiple skin abscesses involving the dorsum aspect of his right hand right leg and left thigh area for which the patient has been admitted to hospital. On today's evaluation that is 09/28/2023,the patient remains to be afebrile, patient is on room air not requiring supplemental oxygen and denies any shortness of breath no chest pain or cough.Patient denies having any nausea or vomiting, no abdominal pain and no diarrhea patient mention pain to the right hand and thigh has decreased intensity feeling better wants to go home. No new lab has been obtained today culture with group A strep Objective - Vital Signs Vital signs: Vital Signs Temp 98.0 F 09/28/23 08:00 Pulse 99 09/28/23 08:00 Resp 18 09/28/23 08:00 BP 129/76 09/28/23 08:00 Pulse Ox 99 09/28/23 08:00 FiO2 Intake & Output 09/27/23 09/28/23 09/28/23 18:59 06:59 18:59 Intake Total 1955 Output Total 300 Balance -300 1954 Weight 100.244 kg Intake: Intake, IV Titration 1475 Amount Sodium Chloride 0.9% 1, 975 000 ml @ 130 mls/hr IV . [id number] [facility] Rx#:[id number] Vancomycin 1,500 mg In 500 Sodium Chloride 0.9% 500 ml 500 ml @ 167 mls/hr IVPB Q8H [facility] Rx#: [id number] Oral 480 Output: Urine 300 Other: Voiding Method Toilet Toilet # Voids 3 - Exam GENERAL DESCRIPTION: Middle-age male lying in bed in no distress RESPIRATORY SYSTEM: Unlabored breathing , decreased breath sounds at bases HEART: S1 S2 regular rate and rhythm , ABDOMEN: Soft , no tenderness EXTREMITIES: Right hand dorsum open wound, drainage of the abscess with surrounding redness slightly decreased leg wound is currently covered - Labs CBC & Chem 7: 09/27/23 09:30 09/27/23 09:30 Labs: Microbiology - Last 24 Hours (Table) 09/25/23 22:25 Gram Stain - Final Leg - Right Wound Culture - Final Strep A 09/25/23 22:25 Blood Culture - Preliminary Blood 09/25/23 22:25 Blood Culture - Preliminary Blood Assessment and Plan (1) IV drug user Current Visit: Yes Status: Acute Code(s): F19.90 - OTHER PSYCHOACTIVE SUBSTANCE USE, UNSPECIFIED, UNCOMPLICATED SNOMED Code(s): 166062148 (2) Abscess of multiple sites Current Visit: Yes Status: Acute Code(s): L02.91 - CUTANEOUS ABSCESS, UNSPECIFIED SNOMED Code(s): 959660590 (3) Leukocytosis Current Visit: Yes Status: Acute Code(s): D72.829 - ELEVATED WHITE BLOOD CELL COUNT, UNSPECIFIED SNOMED Code(s): 459387069 Plan: 1patient presented hospital with multiple skin abscesses especially while on the dorsum aspect of the right hand right lower leg and left medial thigh area from injection drug use likely from gram-positive skin lloyd such as MRSA and less likely gram-negative infection. 2patient will benefit from surgical drainage and deep culture, blood cultures pending wound culture growing group A strep 3we will discontinue vancomycin and start the patient on cefazolin plan is for oral antibiotics on discharge Dictation was produced using [employer] dictation software. please excuse any grammatical, word or spelling errors. Time with Patient: Less than 30
--- NOTE | 2023-09-28 14:33 | P.DS ---
Providers Date of admission: 09/25/23 23:15 Attending physician: Keli Gant MD Consults: 09/26/23 00:54 Consult Physician Urgent Consulting Provider: Olaf Martinez Consult Reason/Comments: Multiple abscesses, history of IVDA Do you want consulting provider notified?: Yes, Notify in am 09/26/23 12:17 Consult Physician Routine Consulting Provider: Billy Sanchez Consult Reason/Comments: multiple abscesses IVDA, need I&D of right hand and left leg Do you want consulting provider notified?: Yes 09/26/23 16:02 Consult Physician Routine Consulting Provider: Audi Davis Consult Reason/Comments: right hand abscess, eval for I&D Do you want consulting provider notified?: Yes Primary care physician: [place] Hospital Course: Hospital course: Patient is a 37-year-old male with a past medical history of IVDA with heroin. He presented to the emergency department secondary to multiple abscess sites concerning for infection with reports of fever and chills. Patient reports these abscesses are due to injecting heroin and missing the vein. Upon arrival to our facility, patient underwent evaluation in the emergency department. Vital signs upon arrival show blood pressure 133/80, heart rate 102, respiratory rate 20, temp 98.2 F, and SpO2 of 95% on room air. Labs completed and reviewed. CBC showing leukocytosis with WBC count of 13.4 and normocytic anemia with hemoglobin of 10.9. BMP showing hyponatremia with sodium of 133, hypochloremia with chloride of 97, and blood glucose of 112. Lactic acid was 1.0. Liver profile unremarkable with the exception of hypoalbuminemia with albumin of 3.3. Blood Cultures were obtained and patient was started on IV antibiotics with vancomycin. Patient admitted under our services with consultation to infectious disease and orthopedic surgery for I&D. While on the antibiotics patient symptoms were improving. Orthopedic surgery at bedside were able to drain a lot of pus from the abscess. Patient was scheduled for surgery however orthopedic surgery later canceled the surgery because his symptoms were improving. Infectious disease wanted to keep the patient for another day of IV antibiotics. However patient left AGAINST MEDICAL ADVICE. When I went back to talk to the patient about leaving AGAINST MEDICAL ADVICE he had already left and did not wait to speak to a physician. The patient did tell the nurse that he will follow-up with his PCP for oral antibiotics. Physical exam General examination - Alert and Oriented 3 in NAD Heart - + S1S2 no murmurs Lungs - Clear to auscultation Abdomen soft NT ND +ve BS Extremities - No edema, right hand wound on the dorsal side that is about 3 x 3 cm with drainage BALE SEWER - Moving all 4 extremities spontaneously Psych - Calm and cooperative Discharge diagnosis Sepsis (tachycardia, leukocytosis, and reports of fever) secondary to abscess with surrounding cellulitis of right hand and left leg. IVDA with heroin Anxiety with depression Hypertension I spent a total of 33 minutes with this discharge Patient Condition at Discharge: Poor Plan - Discharge Summary Discharge Rx Participant: Yes New Discharge Prescriptions: No Action Losartan/Hydrochlorothiazide [Losartan-Hctz 100-25 mg Tab] 1 tab PO HS Mirtazapine [Remeron] 15 mg PO HS Dextroamphetamine/Amphetamine [Adderall] 20 mg PO TID Buprenorphine/Naloxone 8Mg/2Mg [Suboxone 8-2Mg Film] 1.5 film SL HS Metoprolol Succinate (ER) [Toprol Xl] 50 mg PO HS Citalopram Hydrobromide [CeleXA] 40 mg PO HS Discharge Medication List Buprenorphine/Naloxone 8Mg/2Mg [Suboxone 8-2Mg Film] 1.5 film SL HS 07/16/22 [History] Losartan/Hydrochlorothiazide [Losartan-Hctz 100-25 mg Tab] 1 tab PO HS 07/16/22 [History] Citalopram Hydrobromide [CeleXA] 40 mg PO HS 09/26/23 [History] Dextroamphetamine/Amphetamine [Adderall] 20 mg PO TID 09/26/23 [History] Metoprolol Succinate (ER) [Toprol Xl] 50 mg PO HS 09/26/23 [History] Mirtazapine [Remeron] 15 mg PO HS 09/26/23 [History] Follow up Appointment(s)/Referral(s): Magno Ferguson MD [Primary Care Provider] - 1-2 days [facility] [NON-STAFF] - 10 Days Discharge Disposition: LEFT AGAINST MEDICAL ADVICE
== END 2023-09-28 13:40 | disposition left against medical advice (07) | DRG 720 ==
LOC: EC 21:06 → 5NMEDONC 23:15 → 1SOBS 09-27 06:01
PROVIDERS: ADMIT Internal Medicine; ATTEND Internal Medicine
DX: A41.9 Sepsis, unspecified organism (principal); E87.1 Hypo-osmolality and hyponatremia; E87.8 Other disorders of electrolyte and fluid balance, not elsewhere classified; D64.9 Anemia, unspecified; E88.09 Other disorders of plasma-protein metabolism, not elsewhere classified; F11.10 Opioid abuse, uncomplicated; F17.200 Nicotine dependence, unspecified, uncomplicated; F32.A Depression, unspecified; F41.9 Anxiety disorder, unspecified; I10 Essential (primary) hypertension; L02.413 Cutaneous abscess of right upper limb; L02.414 Cutaneous abscess of left upper limb; L02.415 Cutaneous abscess of right lower limb; L02.416 Cutaneous abscess of left lower limb; L02.511 Cutaneous abscess of right hand; L03.113 Cellulitis of right upper limb; L97.122 Non-pressure chronic ulcer of left thigh with fat layer exposed; L97.212 Non-pressure chronic ulcer of right calf with fat layer exposed; L98.492 Non-pressure chronic ulcer of skin of other sites with fat layer exposed; Z53.29 Procedure and treatment not carried out because of patient's decision for other reasons; Z79.82 Long term (current) use of aspirin; Z79.899 Other long term (current) drug therapy; Z28.310 Unvaccinated for COVID-19; Z28.21 Immunization not carried out because of patient refusal
CPT/HCPCS: 36415; 80048; 80053; 80202; 83605; 85025; 85027; 87040; 87070; 87077; 87186; 87205; 93306; 96361; 96365; 96366; 96367; 96368; 96372; 96375; 96376; 99285